=== PATIENT | female | born 1985 | race Caucasian/White ===

== ENCOUNTER 2017-09-10 09:19 | Inpatient (IN) | payer OTHER, MEDICAID ==
[2017-09-10] MEDS: SODIUM CHLORIDE 0.9% 1L BAG IV* (10:44)
[2017-09-10] MEDS: PIPER-TAZO 3.375 GM IV (PMX) 100 ML IVPB (10:45)
[2017-09-10 10:52] LABS: ADD MAN DIFF? NO
[2017-09-10 10:57] LABS: BASOPHILS % 0.3 % (0.0-2.0); EOSINOPHILS % 0.5 % (0.0-7.0); HEMATOCRIT 35.7 % (37.0-47.0); LYMPHOCYTES # 1.2 10^3/ul (0.8-2.9); LYMPHOCYTES % 19.2 % (15.0-51.0); MEAN CORPUSCULAR HEMOGLOBIN 28.2 pg (29.0-33.0); MEAN CORPUSCULAR HGB CONC 33.6 g/dl (32.0-37.0); MEAN CORPUSCULAR VOLUME 83.8 fl (82.0-101.0); MEAN PLATELET VOLUME 8.3 fl (7.4-10.4); MONOCYTE # 0.4 10^3/ul (0.3-0.9); MONOCYTES % 6.9 % (0.0-11.0); NEUTROPHIL # 4.5 10^3/ul (1.6-7.5); NEUTROPHILS % 72.8 % (39.0-77.0); PLATELET COUNT 274 10^3/UL (140-415); RED BLOOD COUNT 4.26 10^6/ul (4.20-5.40); RED CELL DISTRIBUTION WIDTH 13.7 % (11.5-14.5)
[2017-09-10 10:57] LABS: WHITE BLOOD COUNT 6.2 10^3/ul (4.8-10.8)
[2017-09-10] MEDS ORDERED: ONDANSETRON 4 MG INJ IV (11:00)
[2017-09-10] MEDS ORDERED: ACETAMINOPHEN 325 MG TAB PO (11:00)
[2017-09-10 11:20] LABS: ADD UMIC YES; UR ASCORBIC ACID NEGATIVE (NEGATIVE); UR BACTERIA FEW /HPF (NONE SEEN); UR BILIRUBIN (Dip) NEGATIVE (NEGATIVE); UR BLOOD (Dip) NEGATIVE (NEGATIVE); UR CLARITY SLIGHTLY CLOUDY (CLEAR); UR COLOR AMBER (YELLOW); UR GLUCOSE (Dip) NEGATIVE (NEGATIVE); UR KETONES (Dip) NEGATIVE (NEGATIVE); UR LEUKOCYTE ESTERASE (Dip) TRACE Leu/ul (NEGATIVE); UR MUCUS FEW /HPF (NONE SEEN); UR NITRITE (Dip) POSITIVE (NEGATIVE); UR RBC 0 /HPF (0-5); UR SPECIFIC GRAVITY (Dip) 1.016 (1.003-1.030); UR SQUAMOUS EPITHELIAL CELL MODERATE /HPF (FEW); UR TOTAL PROTEIN (Dip) NEGATIVE (NEGATIVE); UR UROBILINOGEN (Dip) 2+ mg/dL (NEGATIVE); UR WBC 2 /HPF (0-5)
[2017-09-10 11:21] LABS: INR 0.93; PROTIME 12.5 Sec (11.9-14.9)
[2017-09-10 11:23] LABS: ALANINE AMINOTRANSFERASE 63 IU/L (13-69); ALBUMIN 3.8 g/dl (3.3-4.9); ALBUMIN/GLOBULIN RATIO 0.88; ALKALINE PHOSPHATASE 190 IU/L (42-121); ANION GAP 11 (8-16); ASPARTATE AMINO TRANSFERASE 36 IU/L (15-46); BILIRUBIN,INDIRECT 0.4 mg/dl (0-1.1); BILIRUBIN,TOTAL 0.4 mg/dl (0.2-1.3); BLOOD UREA NITROGEN 6 mg/dl (7-20); CALCIUM 9.5 mg/dl (8.4-10.2); CARBON DIOXIDE 26 mmol/L (21-31); CHLORIDE 105 mmol/L (97-110); CREATININE 0.61 mg/dl (0.44-1.00); GLUCOSE 88 mg/dl (70-220); PARTIAL THROMBOPLASTIN TIME 30.2 Sec (25.0-35.0); POTASSIUM 3.9 mmol/L (3.5-5.1); SODIUM 138 mmol/L (135-144); TOTAL PROTEIN 8.1 g/dl (6.1-8.1)
[2017-09-10] MEDS: DIPHENHYDRAMINE 50 MG INJ IV (11:28)
[2017-09-10 12:09] LABS: TROPONIN-I < 0.012 ng/ml (0.00-0.12)
[2017-09-10] MEDS: METHYLPREDNISOLONE 125 MG INJ IV (12:10)
[2017-09-10] MEDS: LIDOCAINE 1%/EPI 30 ML INJ INJ (12:55)
[2017-09-10] MEDS ORDERED: VANCOMYCIN IV PER PHARMACY XX (14:30)
[2017-09-10] MEDS ORDERED: morphine 2 MG INJ IV (14:30)
[2017-09-10 15:25] LABS: AMPHETAMINE/METHAMPHETAMINE Negative (NEGATIVE); BARBITURATES Negative (NEGATIVE); BENZODIAZEPINES Negative (NEGATIVE); CANNABINOIDS Negative (NEGATIVE); COCAINE Negative (NEGATIVE); OPIATES Negative (NEGATIVE)
[2017-09-10] MEDS: PRENATAL VITAMIN PO (16:49)
[2017-09-10] MEDS: AMPICILLIN/SULB 1.5GM/NS (PMX) 50 ML IVPB ×2 (16:49→23:16)
[2017-09-10] MEDS: VANCOMYCIN 1.75 GM in NS 500 ML IVPB (17:32)
[2017-09-10] MEDS: DOCUSATE SODIUM 100 MG CAP PO (20:35)
[2017-09-10] MEDS: CHLORHEXIDINE GLUCONATE 15 ML UD CUP MT (20:35)
[2017-09-10] MEDS ORDERED: LACTOBACILLUS RHAMNOSUS CAP PO (21:00)
[2017-09-11] MEDS: VANCOMYCIN 1.25 GM in SOD CHLORIDE 0.45% 250 ML IVPB ×3 (01:24→18:06)
[2017-09-11] MEDS ORDERED: VANCOMYCIN 1.5 GM in DEXTROSE 5% 500 ML IVPB (04:00)
[2017-09-11] MEDS: AMPICILLIN/SULB 1.5GM/NS (PMX) 50 ML IVPB ×4 (05:13→23:30)
[2017-09-11 05:55] LABS: ADD MAN DIFF? NO
[2017-09-11 05:59] LABS: WHITE BLOOD COUNT 6.5 10^3/ul (4.8-10.8)
[2017-09-11 05:59] LABS: BASOPHILS % 0.2 % (0.0-2.0); EOSINOPHILS % 0.2 % (0.0-7.0); HEMATOCRIT 31.7 % (37.0-47.0); HEMOGLOBIN 10.6 g/dl (12.0-16.0); LYMPHOCYTES # 1.1 10^3/ul (0.8-2.9); LYMPHOCYTES % 17.6 % (15.0-51.0); MEAN CORPUSCULAR HEMOGLOBIN 28.3 pg (29.0-33.0); MEAN CORPUSCULAR HGB CONC 33.4 g/dl (32.0-37.0); MEAN CORPUSCULAR VOLUME 84.5 fl (82.0-101.0); MEAN PLATELET VOLUME 8.4 fl (7.4-10.4); MONOCYTE # 0.5 10^3/ul (0.3-0.9); MONOCYTES % 7.1 % (0.0-11.0); NEUTROPHIL # 4.8 10^3/ul (1.6-7.5); NEUTROPHILS % 74.4 % (39.0-77.0); PLATELET COUNT 238 10^3/UL (140-415); RED BLOOD COUNT 3.75 10^6/ul (4.20-5.40); RED CELL DISTRIBUTION WIDTH 13.3 % (11.5-14.5)
[2017-09-11 06:11] LABS: HEMOGLOBIN A1C 4.9 % (0-5.9)
[2017-09-11 06:34] LABS: ANION GAP 14 (8-16); BLOOD UREA NITROGEN 5 mg/dl (7-20); CALCIUM 8.9 mg/dl (8.4-10.2); CARBON DIOXIDE 20 mmol/L (21-31); CHLORIDE 109 mmol/L (97-110); CREATININE 0.51 mg/dl (0.44-1.00); GLUCOSE 93 mg/dl (70-220); MAGNESIUM 1.8 mg/dl (1.7-2.5); PHOSPHORUS 3.1 mg/dl (2.5-4.9); POTASSIUM 3.5 mmol/L (3.5-5.1); SODIUM 139 mmol/L (135-144)
[2017-09-11] MEDS: DOCUSATE SODIUM 100 MG CAP PO ×2 (08:47→20:18)
[2017-09-11] MEDS: PRENATAL VITAMIN PO (08:47)
[2017-09-11] MEDS: CHLORHEXIDINE GLUCONATE 15 ML UD CUP MT ×2 (08:47→20:18)
[2017-09-12] MEDS: VANCOMYCIN 1.5 GM in DEXTROSE 5% 500 ML IVPB ×3 (02:01→19:04)
[2017-09-12 05:27] LABS: ADD MAN DIFF? NO
[2017-09-12 05:32] LABS: WHITE BLOOD COUNT 5.8 10^3/ul (4.8-10.8)
[2017-09-12 05:32] LABS: BASOPHILS % 0.3 % (0.0-2.0); EOSINOPHILS % 0.7 % (0.0-7.0); HEMOGLOBIN 10.5 g/dl (12.0-16.0); LYMPHOCYTES # 1.1 10^3/ul (0.8-2.9); LYMPHOCYTES % 18.2 % (15.0-51.0); MEAN CORPUSCULAR HEMOGLOBIN 27.9 pg (29.0-33.0); MEAN CORPUSCULAR HGB CONC 32.8 g/dl (32.0-37.0); MEAN CORPUSCULAR VOLUME 84.9 fl (82.0-101.0); MEAN PLATELET VOLUME 8.3 fl (7.4-10.4); MONOCYTE # 0.4 10^3/ul (0.3-0.9); MONOCYTES % 6.2 % (0.0-11.0); NEUTROPHIL # 4.3 10^3/ul (1.6-7.5); NEUTROPHILS % 74.4 % (39.0-77.0); PLATELET COUNT 221 10^3/UL (140-415); RED BLOOD COUNT 3.77 10^6/ul (4.20-5.40); RED CELL DISTRIBUTION WIDTH 13.6 % (11.5-14.5)
[2017-09-12 05:57] LABS: ANION GAP 14 (8-16); BLOOD UREA NITROGEN 7 mg/dl (7-20); CALCIUM 8.7 mg/dl (8.4-10.2); CARBON DIOXIDE 20 mmol/L (21-31); CHLORIDE 107 mmol/L (97-110); CREATININE 0.58 mg/dl (0.44-1.00); GLUCOSE 95 mg/dl (70-220); POTASSIUM 3.6 mmol/L (3.5-5.1); SODIUM 137 mmol/L (135-144)
[2017-09-12] MEDS: AMPICILLIN/SULB 1.5GM/NS (PMX) 50 ML IVPB ×4 (06:39→23:58)
[2017-09-12] MEDS: CHLORHEXIDINE GLUCONATE 15 ML UD CUP MT ×2 (09:46→20:19)
[2017-09-12] MEDS: DOCUSATE SODIUM 100 MG CAP PO ×2 (09:46→20:19)
[2017-09-12] MEDS: PRENATAL VITAMIN PO (09:51)
[2017-09-12] MEDS: NITROFURANTOIN (SR) 100 MG CAP PO ×2 (12:37→20:19)
[2017-09-12] MEDS: HYDROCODONE/APAP (5/325) TAB PO (19:47)
[2017-09-13] MEDS: VANCOMYCIN 1.5 GM in DEXTROSE 5% 500 ML IVPB ×3 (02:13→18:43)
[2017-09-13] MEDS: AMPICILLIN/SULB 1.5GM/NS (PMX) 50 ML IVPB ×3 (05:46→17:21)
[2017-09-13 05:58] LABS: ADD MAN DIFF? NO
[2017-09-13 06:01] LABS: WHITE BLOOD COUNT 5.7 10^3/ul (4.8-10.8)
[2017-09-13 06:01] LABS: BASOPHILS % 0.3 % (0.0-2.0); EOSINOPHILS # 0.1 10^3/ul (0.0-0.5); HEMATOCRIT 32.7 % (37.0-47.0); LYMPHOCYTES % 18.2 % (15.0-51.0); MEAN CORPUSCULAR HEMOGLOBIN 28.6 pg (29.0-33.0); MEAN CORPUSCULAR HGB CONC 33.6 g/dl (32.0-37.0); MEAN CORPUSCULAR VOLUME 85.2 fl (82.0-101.0); MEAN PLATELET VOLUME 8.4 fl (7.4-10.4); MONOCYTE # 0.4 10^3/ul (0.3-0.9); MONOCYTES % 6.5 % (0.0-11.0); NEUTROPHIL # 4.2 10^3/ul (1.6-7.5); NEUTROPHILS % 73.8 % (39.0-77.0); PLATELET COUNT 240 10^3/UL (140-415); RED BLOOD COUNT 3.84 10^6/ul (4.20-5.40); RED CELL DISTRIBUTION WIDTH 13.6 % (11.5-14.5)
[2017-09-13 06:30] LABS: ANION GAP 13 (8-16); BLOOD UREA NITROGEN 8 mg/dl (7-20); CALCIUM 8.9 mg/dl (8.4-10.2); CARBON DIOXIDE 24 mmol/L (21-31); CHLORIDE 105 mmol/L (97-110); CREATININE 0.65 mg/dl (0.44-1.00); GLUCOSE 95 mg/dl (70-220); POTASSIUM 3.4 mmol/L (3.5-5.1); SODIUM 139 mmol/L (135-144)
[2017-09-13] MEDS: PRENATAL VITAMIN PO (09:38)
[2017-09-13] MEDS: NITROFURANTOIN (SR) 100 MG CAP PO ×2 (09:38→20:07)
[2017-09-13] MEDS: DOCUSATE SODIUM 100 MG CAP PO ×2 (09:38→20:07)
[2017-09-13] MEDS: CHLORHEXIDINE GLUCONATE 15 ML UD CUP MT ×2 (09:38→20:07)
[2017-09-13 17:34] LABS: VANCOMYCIN,TROUGH 10.2 ug/ml (10.0-20.0)
[2017-09-13] MEDS: HYDROCODONE/APAP (5/325) TAB PO (22:27)
[2017-09-14] MEDS: AMPICILLIN/SULB 1.5GM/NS (PMX) 50 ML IVPB ×4 (00:19→17:51)
[2017-09-14] MEDS: VANCOMYCIN 1.5 GM in DEXTROSE 5% 500 ML IVPB ×3 (02:14→18:52)
[2017-09-14] MEDS: PRENATAL VITAMIN PO (09:21)
[2017-09-14] MEDS: DOCUSATE SODIUM 100 MG CAP PO ×2 (09:21→21:16)
[2017-09-14] MEDS: NITROFURANTOIN (SR) 100 MG CAP PO ×2 (09:21→21:16)
[2017-09-14] MEDS: CHLORHEXIDINE GLUCONATE 15 ML UD CUP MT ×2 (09:21→21:16)
[2017-09-15] MEDS: AMPICILLIN/SULB 1.5GM/NS (PMX) 50 ML IVPB ×4 (00:17→18:05)
[2017-09-15] MEDS: VANCOMYCIN 1.5 GM in DEXTROSE 5% 500 ML IVPB ×3 (02:31→18:46)
[2017-09-15] MEDS: DOCUSATE SODIUM 100 MG CAP PO ×2 (09:34→21:16)
[2017-09-15] MEDS: NITROFURANTOIN (SR) 100 MG CAP PO ×2 (09:35→21:16)
[2017-09-15] MEDS: CHLORHEXIDINE GLUCONATE 15 ML UD CUP MT ×2 (09:35→21:16)
[2017-09-15] MEDS: PRENATAL VITAMIN PO (09:40)
[2017-09-15] MEDS: ACETAMINOPHEN 325 MG TAB PO (18:07)
[2017-09-16] MEDS: AMPICILLIN/SULB 1.5GM/NS (PMX) 50 ML IVPB ×5 (00:05→23:36)
[2017-09-16] MEDS: VANCOMYCIN 1.5 GM in DEXTROSE 5% 500 ML IVPB ×3 (02:13→18:43)
[2017-09-16 05:51] LABS: CREATININE 0.53 mg/dl (0.44-1.00)
[2017-09-16 05:51] LABS: BLOOD UREA NITROGEN 7 mg/dl (7-20)
[2017-09-16] MEDS: NITROFURANTOIN (SR) 100 MG CAP PO ×2 (09:08→20:48)
[2017-09-16] MEDS: PRENATAL VITAMIN PO (09:08)
[2017-09-16] MEDS: DOCUSATE SODIUM 100 MG CAP PO ×2 (09:08→20:48)
[2017-09-16] MEDS: CHLORHEXIDINE GLUCONATE 15 ML UD CUP MT ×2 (09:09→20:48)
[2017-09-16] MEDS: ONDANSETRON 4 MG INJ IV (23:13)
[2017-09-17] MEDS: VANCOMYCIN 1.5 GM in DEXTROSE 5% 500 ML IVPB ×3 (01:50→21:02)
[2017-09-17] MEDS: AMPICILLIN/SULB 1.5GM/NS (PMX) 50 ML IVPB ×3 (05:59→18:27)
[2017-09-17] MEDS: CHLORHEXIDINE GLUCONATE 15 ML UD CUP MT ×2 (08:17→20:58)
[2017-09-17] MEDS: NITROFURANTOIN (SR) 100 MG CAP PO (08:18)
[2017-09-17] MEDS: PRENATAL VITAMIN PO (08:18)
[2017-09-17] MEDS: DOCUSATE SODIUM 100 MG CAP PO ×2 (08:18→20:58)
[2017-09-17 10:22] LABS: VANCOMYCIN,TROUGH 11.2 ug/ml (10.0-20.0)
[2017-09-17] MEDS: HYDROCODONE/APAP (5/325) TAB PO ×2 (15:27→21:41)
[2017-09-18] MEDS: AMPICILLIN/SULB 1.5GM/NS (PMX) 50 ML IVPB ×5 (00:18→23:47)
[2017-09-18] MEDS: HYDROCODONE/APAP (5/325) TAB PO (01:28)
[2017-09-18] MEDS ORDERED: HYDROCODONE/APAP (5/325) TAB PO (01:30)
[2017-09-18] MEDS: VANCOMYCIN 1.5 GM in DEXTROSE 5% 500 ML IVPB ×4 (06:12→13:39)
[2017-09-18] MEDS: CHLORHEXIDINE GLUCONATE 15 ML UD CUP MT ×2 (11:00→21:36)
[2017-09-18] MEDS: DOCUSATE SODIUM 100 MG CAP PO ×2 (11:01→21:36)
[2017-09-18] MEDS: PRENATAL VITAMIN PO (11:08)
[2017-09-19] MEDS: HYDROCODONE/APAP (5/325) TAB PO (02:08)
[2017-09-19] MEDS: AMPICILLIN/SULB 1.5GM/NS (PMX) 50 ML IVPB ×3 (05:09→18:39)
[2017-09-19 05:37] LABS: ADD MAN DIFF? NO
[2017-09-19 05:40] LABS: BASOPHILS % 0.3 % (0.0-2.0); EOSINOPHILS % 0.6 % (0.0-7.0); LYMPHOCYTES # 1.1 10^3/ul (0.8-2.9); LYMPHOCYTES % 15.8 % (15.0-51.0); MEAN CORPUSCULAR HGB CONC 33.3 g/dl (32.0-37.0); MEAN PLATELET VOLUME 8.2 fl (7.4-10.4); MONOCYTE # 0.5 10^3/ul (0.3-0.9); MONOCYTES % 7.2 % (0.0-11.0); NEUTROPHIL # 5.4 10^3/ul (1.6-7.5); NEUTROPHILS % 75.8 % (39.0-77.0); PLATELET COUNT 261 10^3/UL (140-415); RED BLOOD COUNT 3.93 10^6/ul (4.20-5.40); RED CELL DISTRIBUTION WIDTH 13.3 % (11.5-14.5)
[2017-09-19 05:40] LABS: WHITE BLOOD COUNT 7.1 10^3/ul (4.8-10.8)
[2017-09-19] MEDS: VANCOMYCIN 1.5 GM in DEXTROSE 5% 500 ML IVPB ×3 (06:03→21:17)
[2017-09-19 06:17] LABS: CREATININE 0.54 mg/dl (0.44-1.00)
[2017-09-19 06:17] LABS: BLOOD UREA NITROGEN 7 mg/dl (7-20)
[2017-09-19 06:18] LABS: ANION GAP 14 (8-16); BLOOD UREA NITROGEN 7 mg/dl (7-20); CALCIUM 8.8 mg/dl (8.4-10.2); CARBON DIOXIDE 22 mmol/L (21-31); CHLORIDE 105 mmol/L (97-110); GLUCOSE 83 mg/dl (70-220); MAGNESIUM 1.9 mg/dl (1.7-2.5); POTASSIUM 3.4 mmol/L (3.5-5.1); SODIUM 138 mmol/L (135-144)
[2017-09-19] MEDS: CHLORHEXIDINE GLUCONATE 15 ML UD CUP MT ×2 (09:17→21:07)
[2017-09-19] MEDS: PRENATAL VITAMIN PO (09:17)
[2017-09-19] MEDS: DOCUSATE SODIUM 100 MG CAP PO ×2 (09:17→21:08)
[2017-09-20] MEDS: AMPICILLIN/SULB 1.5GM/NS (PMX) 50 ML IVPB ×4 (00:54→18:00)
[2017-09-20] MEDS: VANCOMYCIN 1.5 GM in DEXTROSE 5% 500 ML IVPB ×2 (05:48→13:42)
[2017-09-20] MEDS: PRENATAL VITAMIN PO (08:39)
[2017-09-20] MEDS: CHLORHEXIDINE GLUCONATE 15 ML UD CUP MT (08:39)
[2017-09-20] MEDS: DOCUSATE SODIUM 100 MG CAP PO (08:39)
== END 2017-09-20 18:45 | disposition home or self-care (01) | DRG 781 ==
LOC: MS1 09-11 02:19 → E/R 09:19 → MS3 10:48
DX: O26.893 Other specified pregnancy related conditions, third trimester (principal); K12.2 Cellulitis and abscess of mouth; B96.20 Unspecified Escherichia coli [E. coli] as the cause of diseases classified elsewhere; K13.79 Other lesions of oral mucosa; O23.43 Unspecified infection of urinary tract in pregnancy, third trimester; Z3A.29 29 weeks gestation of pregnancy
CPT/HCPCS: 36415; 70491; 76536; 76815; 80048; 80053; 80202; 80307; 81001; 82565; 83036; 83605; 83735; 84100; 84484; 84520; 85025; 85610; 85730; 87040; 87070; 87086; 96374; 96375; 99285-25

== ENCOUNTER 2017-10-14 07:00 | Inpatient (IN) | payer OTHER ==
[2017-10-14] MEDS: LACTATED RINGER'S 1,000 ML IV ×3 (08:46→23:46)
[2017-10-14 10:49] LABS: ADD MAN DIFF? NO
[2017-10-14 10:52] LABS: BASOPHILS % 0.4 % (0.0-2.0); EOSINOPHILS % 0.8 % (0.0-7.0); HEMATOCRIT 34.1 % (37.0-47.0); HEMOGLOBIN 11.3 g/dl (12.0-16.0); LYMPHOCYTES # 0.8 10^3/ul (0.8-2.9); LYMPHOCYTES % 15.7 % (15.0-51.0); MEAN CORPUSCULAR HEMOGLOBIN 27.8 pg (29.0-33.0); MEAN CORPUSCULAR HGB CONC 33.1 g/dl (32.0-37.0); MONOCYTE # 0.5 10^3/ul (0.3-0.9); MONOCYTES % 9.2 % (0.0-11.0); NEUTROPHIL # 3.9 10^3/ul (1.6-7.5); NEUTROPHILS % 73.7 % (39.0-77.0); PLATELET COUNT 286 10^3/UL (140-415); RED BLOOD COUNT 4.06 10^6/ul (4.20-5.40); RED CELL DISTRIBUTION WIDTH 13.8 % (11.5-14.5)
[2017-10-14 10:52] LABS: WHITE BLOOD COUNT 5.2 10^3/ul (4.8-10.8)
[2017-10-14] MEDS ORDERED: METHYLERGONOVINE 0.2 MG INJ IM (11:00)
[2017-10-14] MEDS ORDERED: OXYTOCIN 30 UNITS/LR 500 ML IV (11:00)
[2017-10-14] MEDS ORDERED: MISOPROSTOL 200 MCG TAB PR (11:00)
[2017-10-14] MEDS ORDERED: CARBOPROST 250 MCG INJ IM (11:00)
[2017-10-14 11:14] LABS: INR 0.93; PROTIME 12.6 Sec (11.9-14.9)
[2017-10-14 11:15] LABS: PARTIAL THROMBOPLASTIN TIME 31.3 Sec (25.0-35.0)
[2017-10-14 12:16] LABS: HEPATITIS B SURFACE ANTIGEN NEGATIVE (NEGATIVE)
[2017-10-14] MEDS: TERBUTALINE 1 MG/ML INJ SC (17:33)
[2017-10-14 22:35] LABS: RAPID PLASMA REAGIN NONREACTIVE (NR)
[2017-10-15] MEDS: ACETAMINOPHEN 500 MG TAB PO (02:57)
[2017-10-15 06:58] LABS: RETICULOCYTE RBC 3.75
[2017-10-15 06:58] LABS: RETICULOCYTE COUNT # 0.058 X10^6 (0.020-0.110); RETICULOCYTE COUNT % 1.5 % (0.5-1.5)
[2017-10-15] MEDS: LACTATED RINGER'S 1,000 ML IV ×3 (07:02→15:57)
[2017-10-15] MEDS: METOCLOPRAMIDE 10 MG INJ IV (07:15)
[2017-10-15] MEDS: CITRIC ACID/SODIUM CITRATE 15 ML CUP PO (07:15)
[2017-10-15] MEDS: FAMOTIDINE 20 MG INJ IV (07:15)
[2017-10-15 07:23] LABS: LACTATE DEHYDROGENASE 521 IU/L (313-618)
[2017-10-15] MEDS ORDERED: morphine SULFATE/PF (10 MG/10 ML) INJ (07:41)
[2017-10-15] MEDS ORDERED: FENTAnyl 50 MCG/ML VIAL (07:41)
[2017-10-15] MEDS ORDERED: PHENYLephrine (100 MCG/ML) 5ML SYG ×2 (07:51→08:32)
[2017-10-15] MEDS ORDERED: EPHEDrine SULFATE 50 MG/5 ML SYG (07:55)
[2017-10-15] MEDS ORDERED: ONDANSETRON 4 MG INJ (08:10)
[2017-10-15] MEDS ORDERED: OXYTOCIN 30 UNITS/LR 500 ML IV (08:26)
[2017-10-15] MEDS ORDERED: HYDROmorphONE (0.2 MG/ML) 10ML SYG IV (08:30)
[2017-10-15] MEDS ORDERED: PROCHLORPERAZINE 10 MG INJ IV (08:30)
[2017-10-15] MEDS ORDERED: DIPHENHYDRAMINE 50 MG INJ IV ×2 (08:30→10:30)
[2017-10-15] MEDS ORDERED: ONDANSETRON 4 MG INJ IV ×2 (08:30→10:30)
[2017-10-15] MEDS ORDERED: FENTAnyl 50 MCG/ML VIAL IV (08:30)
[2017-10-15] MEDS ORDERED: MEPERIDINE 25 MG INJ IV (08:30)
[2017-10-15] MEDS ORDERED: MIDAZOLAM 1 MG/ML 2 ML INJ (08:32)
[2017-10-15] MEDS: CEFAZOLIN 2 GM/50 ML (PMX) 50 ML IVPB (09:25)
[2017-10-15] MEDS ORDERED: LANOLIN 7 GM TUBE TOP (09:30)
[2017-10-15] MEDS ORDERED: MISOPROSTOL 200 MCG TAB PR (09:30)
[2017-10-15] MEDS ORDERED: NA PHOSPHATE/BIPHOS 133 ML ENEMA PR (09:30)
[2017-10-15] MEDS: OXYTOCIN 30 UNITS/LR 500 ML IV ×2 (09:51→11:23)
[2017-10-15] MEDS ORDERED: NALOXONE (0.4 MG/ML) INJ IV (10:30)
[2017-10-15] MEDS ORDERED: HYDROmorphONE 0.5 MG/0.5 ML SYG IV ×2 (10:30)
[2017-10-15] MEDS ORDERED: ZOLPIDEM 5 MG TAB PO (10:30)
[2017-10-15] MEDS: KETOROLAC 30 MG INJ IV ×2 (11:42→18:57)
[2017-10-15] MEDS: IBUPROFEN 600 MG TAB PO ×2 (12:00→18:00)
[2017-10-15] MEDS: SENNA/DOCUSATE NA (8.6MG/50MG) TAB PO (21:00)
[2017-10-16] MEDS: LACTATED RINGER'S 1,000 ML IV ×3 (00:07→20:08)
[2017-10-16] MEDS: IBUPROFEN 600 MG TAB PO ×4 (06:00→20:08)
[2017-10-16] MEDS: KETOROLAC 30 MG INJ IV (06:03)
[2017-10-16 08:12] LABS: ADD MAN DIFF? NO
[2017-10-16 08:16] LABS: WHITE BLOOD COUNT 7.1 10^3/ul (4.8-10.8)
[2017-10-16 08:16] LABS: BASOPHILS % 0.1 % (0.0-2.0); EOSINOPHILS % 0.1 % (0.0-7.0); HEMATOCRIT 27.2 % (37.0-47.0); LYMPHOCYTES # 0.6 10^3/ul (0.8-2.9); LYMPHOCYTES % 8.9 % (15.0-51.0); MEAN CORPUSCULAR HEMOGLOBIN 27.5 pg (29.0-33.0); MEAN CORPUSCULAR HGB CONC 33.1 g/dl (32.0-37.0); MEAN CORPUSCULAR VOLUME 83.2 fl (82.0-101.0); MEAN PLATELET VOLUME 8.9 fl (7.4-10.4); MONOCYTE # 0.4 10^3/ul (0.3-0.9); MONOCYTES % 5.4 % (0.0-11.0); NEUTROPHILS % 85.1 % (39.0-77.0); PLATELET COUNT 212 10^3/UL (140-415); RED BLOOD COUNT 3.27 10^6/ul (4.20-5.40); RED CELL DISTRIBUTION WIDTH 13.4 % (11.5-14.5)
[2017-10-16 08:42] LABS: ALANINE AMINOTRANSFERASE 72 IU/L (13-69); ALBUMIN 2.7 g/dl (3.3-4.9); ALBUMIN/GLOBULIN RATIO 0.84; ALKALINE PHOSPHATASE 160 IU/L (42-121); ANION GAP 12 (8-16); ASPARTATE AMINO TRANSFERASE 34 IU/L (15-46); BILIRUBIN,INDIRECT 0.5 mg/dl (0-1.1); BILIRUBIN,TOTAL 0.5 mg/dl (0.2-1.3); BLOOD UREA NITROGEN 5 mg/dl (7-20); CALCIUM 8.8 mg/dl (8.4-10.2); CARBON DIOXIDE 25 mmol/L (21-31); CHLORIDE 105 mmol/L (97-110); CREATININE 0.53 mg/dl (0.44-1.00); GLUCOSE 77 mg/dl (70-220); POTASSIUM 3.7 mmol/L (3.5-5.1); SODIUM 138 mmol/L (135-144); TOTAL PROTEIN 5.9 g/dl (6.1-8.1)
[2017-10-16 08:43] LABS: IRON 27 ug/dl (35-150)
[2017-10-16 08:50] LABS: URIC ACID 5.3 mg/dl (3.1-7.9)
[2017-10-16 08:50] LABS: LACTATE DEHYDROGENASE 713 IU/L (313-618)
[2017-10-16 08:52] LABS: % IRON SATURATION 6 % SAT (22-52); TOTAL IRON BINDING CAPACITY 426 ug/dl (241-421)
[2017-10-16] MEDS: SENNA/DOCUSATE NA (8.6MG/50MG) TAB PO ×2 (09:08→20:37)
[2017-10-16 09:26] LABS: FERRITIN 52.1 ng/ml (6.2-137.0)
[2017-10-16 09:31] LABS: ERYTHROCYTE SEDIMENTATION RATE 85 mm/Hr (0-20)
[2017-10-16 09:56] LABS: FOLATE 12.5 ng/ml (2.8-20.0)
[2017-10-16] MEDS: OXYCODONE/ACETAMINOPHEN (5/325) TAB PO ×3 (10:24→20:37)
[2017-10-16] MEDS ORDERED: IOHEXOL 14.3 MG(I)/ML (ADULT) BTL PO (11:00)
[2017-10-16] MEDS: IOHEXOL 14.3 MG(I)/ML (ADULT) BTL PO (11:05)
[2017-10-16] MEDS: BARIUM SULF 2% 450 ML BTL (BERRY SMOOTHIE) PO (11:07)
[2017-10-16] MEDS: SOD CHLORIDE 0.9% 100 ML (15:15)
[2017-10-16] MEDS: IOHEXOL 300MG/ML 150 ML BTL (15:15)
[2017-10-16 17:07] LABS: BETA-2 MICROGLOBULIN 1.89 mg/L (< OR = 2.51)
[2017-10-16] MEDS: ALLOPURINOL 300 MG TAB PO (23:02)
[2017-10-17] MEDS: IBUPROFEN 600 MG TAB PO ×5 (00:01→23:49)
[2017-10-17] MEDS: LACTATED RINGER'S 1,000 ML IV (06:17)
[2017-10-17 08:32] LABS: HAAIG REFLEX REFLEX FILED
[2017-10-17 08:57] LABS: PHOSPHORUS 5.3 mg/dl (2.5-4.9)
[2017-10-17 08:57] LABS: MAGNESIUM 1.9 mg/dl (1.7-2.5)
[2017-10-17] MEDS: SENNA/DOCUSATE NA (8.6MG/50MG) TAB PO ×2 (12:44→21:16)
[2017-10-17] MEDS: ALLOPURINOL 300 MG TAB PO (12:44)
[2017-10-17 13:09] LABS: HEPATITIS B SURFACE ANTIGEN NEGATIVE (NEGATIVE)
[2017-10-17 13:19] LABS: HEPATITIS B CORE ANTIBODY NEGATIVE (NEGATIVE); HEPATITIS C VIRAL ANTIBODY NEGATIVE (NEGATIVE)
[2017-10-17] MEDS: OXYCODONE/ACETAMINOPHEN (5/325) TAB PO ×5 (15:59→22:35)
[2017-10-18] MEDS: LACTATED RINGER'S 1,000 ML IV ×2 (00:33→06:21)
[2017-10-18] MEDS: IBUPROFEN 600 MG TAB PO (06:00)
[2017-10-18] MEDS: KETOROLAC 30 MG INJ IV (06:22)
[2017-10-18] MEDS ORDERED: DIPHTH/TET/ACEL PERTUSS (ADULT) 0.5 ML VIAL IM* (09:00)
[2017-10-18] MEDS: SENNA/DOCUSATE NA (8.6MG/50MG) TAB PO (09:00)
[2017-10-18] MEDS: MEASLES,MUMPS,RUBELLA VACCINE INJ SC* (09:00)
[2017-10-18] MEDS: ALLOPURINOL 300 MG TAB PO (09:00)
[2017-10-18 11:06] LABS: ADD MAN DIFF? NO
[2017-10-18 11:23] LABS: WHITE BLOOD COUNT 6.7 10^3/ul (4.8-10.8)
[2017-10-18 11:23] LABS: BASOPHILS % 0.4 % (0.0-2.0); EOSINOPHILS # 0.2 10^3/ul (0.0-0.5); EOSINOPHILS % 3.1 % (0.0-7.0); HEMATOCRIT 28.5 % (37.0-47.0); HEMOGLOBIN 9.2 g/dl (12.0-16.0); LYMPHOCYTES # 0.7 10^3/ul (0.8-2.9); LYMPHOCYTES % 10.8 % (15.0-51.0); MEAN CORPUSCULAR HEMOGLOBIN 27.3 pg (29.0-33.0); MEAN CORPUSCULAR HGB CONC 32.3 g/dl (32.0-37.0); MEAN CORPUSCULAR VOLUME 84.6 fl (82.0-101.0); MEAN PLATELET VOLUME 8.7 fl (7.4-10.4); MONOCYTE # 0.4 10^3/ul (0.3-0.9); MONOCYTES % 5.3 % (0.0-11.0); NEUTROPHIL # 5.4 10^3/ul (1.6-7.5); NEUTROPHILS % 80.3 % (39.0-77.0); PLATELET COUNT 256 10^3/UL (140-415); RED BLOOD COUNT 3.37 10^6/ul (4.20-5.40); RED CELL DISTRIBUTION WIDTH 13.9 % (11.5-14.5)
[2017-10-18 11:34] LABS: ALANINE AMINOTRANSFERASE 55 IU/L (13-69); ALBUMIN/GLOBULIN RATIO 0.96; ALKALINE PHOSPHATASE 149 IU/L (42-121); ANION GAP 12 (8-16); ASPARTATE AMINO TRANSFERASE 30 IU/L (15-46); BILIRUBIN,INDIRECT 0.4 mg/dl (0-1.1); BILIRUBIN,TOTAL 0.4 mg/dl (0.2-1.3); BLOOD UREA NITROGEN 8 mg/dl (7-20); CALCIUM 8.7 mg/dl (8.4-10.2); CARBON DIOXIDE 26 mmol/L (21-31); CHLORIDE 107 mmol/L (97-110); CREATININE 0.63 mg/dl (0.44-1.00); GLUCOSE 82 mg/dl (70-220); POTASSIUM 3.8 mmol/L (3.5-5.1); SODIUM 141 mmol/L (135-144); TOTAL PROTEIN 6.1 g/dl (6.1-8.1)
[2017-10-18] MEDS ORDERED: PROPOFOL 20 ML ×2 (14:07→16:38)
[2017-10-18] MEDS ORDERED: CEFAZOLIN 1 GM INJ ×2 (14:07→14:38)
[2017-10-18] MEDS ORDERED: MIDAZOLAM 1 MG/ML 2 ML INJ (14:07)
[2017-10-18] MEDS ORDERED: FENTAnyl 50 MCG/ML VIAL (14:07)
[2017-10-18] MEDS ORDERED: LIDOCAINE 1% (MPF) 30 ML INJ (14:09)
[2017-10-18] MEDS ORDERED: BUPIVACAINE 0.5% (SDV) 30 ML INJ (14:09)
[2017-10-18] MEDS ORDERED: POLYMYXIN/BACITRACIN 1L IRRIG (14:46)
[2017-10-18] MEDS: HEPARIN 1000 UNITS/ML 10 ML INJ ×2 (15:30→15:35)
[2017-10-18] MEDS: LIDOCAINE 1%/EPI 30 ML INJ (15:34)
== END 2017-10-18 21:50 | disposition home or self-care (01) | DRG 765 ==
LOC: L-D 07:00 → PP1 10-15 11:12
PROVIDERS: Specialist
PROC: 10D00Z1 Extraction of Products of Conception, Low, Open Approach (ICD-10-PCS; principal; 2017-10-15 07:30)
PROC: 0JH60WZ Insertion of Totally Implantable Vascular Access Device into Chest Subcutaneous Tissue and Fascia, Open Approach (ICD-10-PCS; 2017-10-18 14:00)
PROC: 02H633Z Insertion of Infusion Device into Right Atrium, Percutaneous Approach (ICD-10-PCS; 2017-10-18 14:00)
PROC: B244YZZ Ultrasonography of Right Heart using Other Contrast (ICD-10-PCS; 2017-10-18 14:00)
DX: O9A.12 Malignant neoplasm complicating childbirth (principal); C85.91 Non-Hodgkin lymphoma, unspecified, lymph nodes of head, face, and neck; Z37.0 Single live birth; O34.219 Maternal care for unspecified type scar from previous cesarean delivery; Z3A.33 33 weeks gestation of pregnancy
CPT/HCPCS: 36561; 70491; 71260; 74177; 76942; 80053; 82306; 82607; 82728; 82746; 83540; 83615; 83735; 84100; 84443; 84560; 85025; 85045; 85610; 85651; 85730; 86592; 86704; 86709; 86803; 86850; 86900; 86901; 87340; 93306; 94760; 99464

== ENCOUNTER 2017-11-06 17:38 | Emergency (ER) | payer OTHER ==
[2017-11-06] MEDS: HYDROCODONE/APAP (10/325) TAB PO (21:26)
[2017-11-06] MEDS: ONDANSETRON (ODT) 4 MG TAB ODT (21:26)
== END 2017-11-06 23:20 | disposition home or self-care (01) ==
LOC: E/R 17:38
DX: R51 Headache (principal)
CPT/HCPCS: 70450; 99284-25

== ENCOUNTER 2017-11-08 00:51 | Emergency (ER) | payer OTHER ==
[2017-11-08 01:18] LABS: URINE BLOOD (Dip) POC Negative (NEGATIVE); URINE GLUCOSE (Dip) POC Negative (NEGATIVE); URINE KETONES (Dip) POC Negative (NEGATIVE); URINE LEUKOCYTE EST (Dip) POC Negative (NEGATIVE); URINE NITRITE (Dip) POC Negative (NEGATIVE); URINE TOTAL PROTEIN POC Negative (NEGATIVE)
[2017-11-08] MEDS: HYDROCODONE/APAP (10/325) TAB PO (01:41)
[2017-11-08] MEDS: ONDANSETRON (ODT) 4 MG TAB ODT (01:41)
== END 2017-11-08 04:51 | disposition home or self-care (01) ==
LOC: E/R 00:51
DX: R51 Headache (principal); R07.9 Chest pain, unspecified; Z85.72 Personal history of non-Hodgkin lymphomas
CPT/HCPCS: 71045; 81003; 81025; 93005; 99284-25